=== PATIENT | female | born 1960 | race Caucasian/White ===

== ENCOUNTER 2019-01-17 08:56 | Emergency (ER) | payer OTHER, SELFPAY ==
--- NOTE | 2019-01-17 09:11 | DI.RAD.S_ITS ---
PROCEDURE: XR FOOT LT MIN 3V INDICATIONS: fall TECHNIQUE: 3 views of the foot were acquired. COMPARISON: None. FINDINGS: Bones: There is a mildly displaced fifth metatarsal fracture through the mid to distal shaft. No definite intra-articular extension is evident. Irregularity along the lateral margin of the anterior distal calcaneus is present. No additional fractures are appreciated. No suspicious osseous lesions are present. A bipartite medial sesamoid of the great toe is evident. Soft tissues: No tibiotalar joint effusion. Soft tissue swelling at the fracture site is present. No radiopaque foreign bodies. IMPRESSION: 1. Mildly displaced fifth metatarsal fracture. 2. Questionable avulsion fracture involving the lateral aspect of the distal calcaneus. Please correlate with point tenderness. The need for further evaluation utilizing CT may be determined clinically. Dictated by: Kleber Last M.D. on 01/17/2019 at 9:05 Approved by: Kleber Last M.D. on 01/17/2019 at 9:08
--- NOTE | 2019-01-17 09:11 | DI.RAD.S_ITS ---
PROCEDURE: XR WRIST RT MIN 3V INDICATIONS: fall TECHNIQUE: 3 views of the wrist were acquired. COMPARISON: None. FINDINGS: Bones: There is a mildly comminuted fracture identified through the distal radial metaphysis with mild dorsal impaction and angulation of the distal fracture fragment. Fracture lines probably extend onto the articular surface of the radiocarpal joint and also appear to extend into the distal radioulnar joint. No additional fractures are appreciated. No suspicious osseous lesions are present. Soft tissues: No suspicious soft tissue calcifications. IMPRESSION: Mildly comminuted and impacted distal radius fracture (Colles' fracture). Dictated by: Kleber Last M.D. on 01/17/2019 at 9:08 Approved by: Kleber Last M.D. on 01/17/2019 at 9:10
[2019-01-17 09:13] VITALS: BP 148/92; PULSE 78; RESP 20; TEMP 36.2; O2SAT 99
[2019-01-17 09:35] VITALS: BP 148/92; PULSE 84; RESP 20; O2SAT 99
--- NOTE | 2019-01-17 09:44 | ED.FALL ---
HPI - Fall General Chief Complaint: Trauma Stated Complaint: Possible broken rt wrist, hurt lft foot Time Seen by Provider: 01/17/19 09:25 Source: patient Mode of arrival: wheelchair Limitations: no limitations History of Present Illness HPI Narrative: Patient is a 58-year-old female who was preparing for her [facility] today, there was of pedestal that she placed out last evening when she got up out of bed this morning she fell off the pedestal. Her left foot is black and blue with pain she is unable to weight bear completely. She also has right wrist pain. She denies hitting her head or loss of consciousness. She has no nausea vomiting. She has chronic ongoing neck pain. MD complaint: fall Onset (ago): hour(s) Fall from: standing Related Data Previous Rx's Medication Instructions Recorded hydrocodone-acetaminophen [Raymond] 1 tab PO Q6H PRN #10 tab 01/17/19 Review of Systems Review of Systems ROS Unobtainable: All systems reviewed & are unremarkable except as noted in HPI and below Constitutional Denies chills, Denies fever(s), Denies lethargy and Denies weakness Cardiovascular Denies chest pain, Denies irregular heart rhythm, Denies lightheadedness, Denies palpitations, Denies dyspnea, Denies dyspnea on exertion and Denies orthopnea Respiratory Denies cough, Denies dyspnea, Denies dyspnea on exertion and Denies wheezing Gastrointestinal Gastrointestinal: Denies abdominal pain, Denies change in bowel habits, Denies diarrhea, Denies nausea and Denies vomiting Musculoskeletal Reports as per HPI Integumentary/Breasts Denies pruritus, Denies erythema, Denies rash and Denies wounds Neurologic Denies weakness Endocrine Denies palpitations Allergic/Immunologic Denies wheezing Exam Initial Vital Signs Initial Vital Signs: Vital Signs Temperature 97.2 F L 01/17/19 09:13 Pulse Rate 78 01/17/19 09:13 Respiratory Rate 20 01/17/19 09:13 Blood Pressure 148/92 H 01/17/19 09:13 Pulse Oximetry 99 01/17/19 09:13 GENERAL: Well-appearing, well-nourished and in no acute distress. HEENT: Head atraumatic,EOMI, pupils reactive, face symmetric, moist mucous membranes CARDIOVASCULAR: Regular rate and rhythm without murmurs, rubs or gallops. RESPIRATORY: Breath sounds equal bilaterally, no wheezes rales or rhonchi. ABDOMEN: Soft, nontender. Normoactive bowel sounds all 4 quadrants. No guarding or rebound. EXTREMITIES: Normal range of motion, no clubbing or edema. Neurovascularly intact Right wrist mild swelling painful to touch. Able to move fingers. Distal radial pulses intact. No elbow pain or deformity. Left foot contusion laterally. Distal pedal pulses intact. NEUROLOGICAL: Alert and oriented x4.Normal gait and speech. Cranial nerves II through XII grossly intact. SKIN: Left foot contusion no other erythema. [facility] Medical History Chronic neck pain (Acute) Social History Smoking Status: Never smoker Social History Smoking Status: Never smoker Procedures Orthopedic Splinting/Casting Injury #1: Side: right Upper Extremity Injury Location: wrist Upper Extremity Immobilizer: volar splint Post splinting neuro exam: intact Post splinting vascular exam: intact Placed by: Nursing Injury #2: Side: left Lower Extremity Injury Location: foot Lower Extremity Immobilizer: post-op shoe Post splinting vascular exam: intact Placed by: Nursing Course Orders Ordered: ED Orders 01/17/19 09:11 XR foot LT min 3V Stat XR wrist RT min 3V Stat Vital Signs - 8 hr 01/17/19 09:13 01/17/19 09:35 Temperature 97.2 F L Pulse Rate 78 84 Respiratory Rate 20 20 Blood Pressure 148/92 H Blood Pressure [Left Arm] 148/92 H Pulse Oximetry 99 99 MDM - Fall Imaging Data left foot: Radiologist's impression: PROCEDURE: XR FOOT LT MIN 3V INDICATIONS: fall TECHNIQUE: 3 views of the foot were acquired. COMPARISON: None. FINDINGS: Bones: There is a mildly displaced fifth metatarsal fracture through the mid to distal shaft. No definite intra-articular extension is evident. Irregularity along the lateral margin of the anterior distal calcaneus is present. No additional fractures are appreciated. No suspicious osseous lesions are present. A bipartite medial sesamoid of the great toe is evident. Soft tissues: No tibiotalar joint effusion. Soft tissue swelling at the fracture site is present. No radiopaque foreign bodies. IMPRESSION: 1. Mildly displaced fifth metatarsal fracture. 2. Questionable avulsion fracture involving the lateral aspect of the distal calcaneus. Please correlate with point tenderness. The need for further evaluation utilizing CT may be determined clinically. Dictated by: Kleber Last M.D. on 01/17/2019 at 9:05 right wrist: Radiologist's impression: PROCEDURE: XR WRIST RT MIN 3V INDICATIONS: fall TECHNIQUE: 3 views of the wrist were acquired. COMPARISON: None. FINDINGS: Bones: There is a mildly comminuted fracture identified through the distal radial metaphysis with mild dorsal impaction and angulation of the distal fracture fragment. Fracture lines probably extend onto the articular surface of the radiocarpal joint and also appear to extend into the distal radioulnar joint. No additional fractures are appreciated. No suspicious osseous lesions are present. Soft tissues: No suspicious soft tissue calcifications. IMPRESSION: Mildly comminuted and impacted distal radius fracture (Colles' fracture). Dictated by: Kleber Last M.D. on 01/17/2019 at 9:08 [facility] Narrative Medical decision making narrative: Patient is actually able to bear weight with orthopedic shoe. She does not want a sling for her arm she can't have anything around her neck or touching it. Her friend has gone to get her a cane in fill her pain prescriptions. she has no head injury, no history or signs or symptoms of head injury. At this time no further imaging indicated. She lives out of town and will follow up with her own orthopedics and PCP and [facility] She is given at this. Discharge Plan Departure Patient Disposition: Home Clinical Impression: Closed fracture of right wrist Qualifiers: Encounter type: initial encounter Qualified Code(s): S62.101A - Fracture of unspecified carpal bone, right wrist, initial encounter for closed fracture Closed fracture of fifth toe of left foot Qualifiers: Encounter type: initial encounter Qualified Code(s): S92.502A - Displaced unspecified fracture of left lesser toe(s), initial encounter for closed fracture Discharge Date/Time: 01/17/19 10:37 Interventions: ED Discharge Assessment Last Done: 01/17/19 10:37 Instructions: Wrist Fracture, Foot Fracture Activity Restrictions/Additional Instructions: *You have been diagnosed with a left 5th toe fracture, right wrist fracture *What to do: Your foot may require surgery. Please wear orthopedic shoe at times including while sleeping. Where wrist splint and cast at all times as well. This will require a more permanent cast in about 1 week with Orthopedics. *Continue to take medications as directed Raymond 1 tablet every 4 hours or 2 tablets every 6 hours if needed for severe pain *Follow up with your primary care provider in 2-3 days, call your orthopedic on Saturday to schedule follow up appointment next week *Return to ER if you should have increasing pain numbness tingling or any new, worsening or concerning symptoms Prescriptions: New hydrocodone-acetaminophen [Raymond] 5-325 mg tablet 1 tab PO Q6H PRN (Reason: pain) Qty: 10 RF: 0
--- NOTE | 2019-01-17 09:50 | ED_ITS ---
HPI - Fall General Chief Complaint: Trauma Stated Complaint: Possible broken rt wrist, hurt lft foot Time Seen by Provider: 01/17/19 09:25 Source: patient Mode of arrival: wheelchair Limitations: no limitations History of Present Illness HPI Narrative: Patient is a 58-year-old female who was preparing for her [employer] today, there was of pedestal that she placed out last evening when she got up out of bed this morning she fell off the pedestal. Her left foot is black and blue with pain she is unable to weight bear completely. She also has right wrist pain. She denies hitting her head or loss of co nsciousness. She has no nausea vomiting. She has chronic ongoing neck pain. MD complaint: fall Onset (ago): hour(s) Fall from: standing Related Data Previous Rx's Medication Instructions Recorded hydrocodone-acetaminophen [Duxbury] 1 tab PO Q6H PRN #10 tab 01/17/19 Review of Systems Review of Systems ROS Unobtainable: All systems reviewed & are unremarkable except as noted in HPI and below Constitutional Denies chills, Denies fever(s), Denies lethargy and Denies weakness Cardiovascular Denies chest pain, Denies irregular heart rhythm, Denies lightheadedness, Denies palpitations, Denies dyspnea, Denies dyspnea on exertion and Denies orthopnea Respiratory Denies cough, Denies dyspnea, Denies dyspnea on exertion and Denies wheezing Gastrointestinal Gastrointestinal: Denies abdominal pain, Denies change in bowel habits, Denies diarrhea, Denies nausea and Denies vomiting Musculoskeletal Reports as per HPI Integumentary/Breasts Denies pruritus, Denies erythema, Denies rash and Denies wounds Neurologic Denies weakness Endocrine Denies palpitations Allergic/Immunologic Denies wheezing Exam Initial Vital Signs Initial Vital Signs: Vital Signs Temperature 97.2 F L 01/17/19 09:13 Pulse Rate 78 01/17/19 09:13 Respiratory Rate 20 01/17/19 09:13 Blood Pressure 148/92 H 01/17/19 09:13 Pulse Oximetry 99 01/17/19 09:13 GENERAL: Well-appearing, well-nourished and in no acute distress. HEENT: Head atraumatic,EOMI, pupils reactive, face symmetric, moist mucous membranes CARDIOVASCULAR: Regular rate and rhythm without murmurs, rubs or gallops. RESPIRATORY: Breath sounds equal bilaterally, no wheezes rales or rhonchi. ABDOMEN: Soft, nontender. Normoactive bowel sounds all 4 quadrants. No guarding or rebound. EXTREMITIES: Normal range of motion, no clubbing or edema. Neurovascularly intact Right wrist mild swelling painful to touch. Able to move fingers. Distal radial pulses intact. No elbow pain or deformity. Left foot contusion laterally. Distal pedal pulses intact. NEUROLOGICAL: Alert and oriented x4.Normal gait and speech. Cranial nerves II through XII grossly intact. SKIN: Left foot contusion no other erythema. [facility] Medical History Chronic neck pain (Acute) Social History Smoking Status: Never smoker Social History Smoking Status: Never smoker Procedures Orthopedic Splinting/Casting Injury #1: Side: right Upper Extremity Injury Location: wrist Upper Extremity Immobilizer: volar splint Post splinting neuro exam: intact Post splinting vascular exam: intact Placed by: Nursing Injury #2: Side: left Lower Extremity Injury Location: foot Lower Extremity Immobilizer: post-op shoe Post splinting vascular exam: intact Placed by: Nursing Course Orders Ordered: ED Orders 01/17/19 09:11 XR foot LT min 3V Stat XR wrist RT min 3V Stat Vital Signs - 8 hr 01/17/19 09:13 01/17/19 09:35 Temperature 97.2 F L Pulse Rate 78 84 Respiratory Rate 20 20 Blood Pressure 148/92 H Blood Pressure [Left Arm] 148/92 H Pulse Oximetry 99 99 MDM - Fall Imaging Data left foot: Radiologist's impression: PROCEDURE: XR FOOT LT MIN 3V INDICATIONS: fall TECHNIQUE: 3 views of the foot were acquired. COMPARISON: None. FINDINGS: Bones: There is a mildly displaced fifth metatarsal fracture through the mid to distal shaft. No definite intra-articular extension is evident. Irregularity along the lateral margin of the anterior distal calcaneus is present. No additional fractures are appreciated. No suspicious osseous lesions are present. A bipartite medial sesamoid of the great toe is evident. Soft tissues: No tibiotalar joint effusion. Soft tissue swelling at the fracture site is present. No radiopaque foreign bodies. IMPRESSION: 1. Mildly displaced fifth metatarsal fracture. 2. Questionable avulsion fracture involving the lateral aspect of the distal calcaneus. Please correlate with point tenderness. The need for further evaluation utilizing CT may be determined clinically. Dictated by: Kleber Last M.D. on 01/17/2019 at 9:05 right wrist: Radiologist's impression: PROCEDURE: XR WRIST RT MIN 3V INDICATIONS: fall TECHNIQUE: 3 views of the wrist were acquired. COMPARISON: None. FINDINGS: Bones: There is a mildly comminuted fracture identified through the distal radial metaphysis with mild dorsal impaction and angulation of the distal fracture fragment. Fracture lines probably extend onto the articular surface of the radiocarpal joint and also appear to extend into the distal radioulnar joint. No additional fractures are appreciated. No suspicious osseous lesions are present. Soft tissues: No suspicious soft tissue calcifications. IMPRESSION: Mildly comminuted and impacted distal radius fracture (Colles' fracture). Dictated by: Kleber Last M.D. on 01/17/2019 at 9:08 [facility] Narrative Medical decision making narrative: Patient is actually able to bear weight with orthopedic shoe. She does not want a sling for her arm she can't have anything around her neck or touching it. Her friend has gone to get her a cane in fill her pain prescriptions. she has no head injury, no history or signs or symptoms of head injury. At this time no further imaging indicated. She lives out of town and will follow up with her own orthopedics and PCP and [facility] She is given at this. Discharge Plan Departure Patient Disposition: Home Clinical Impression: Closed fracture of right wrist Qualifiers: Encounter type: initial encounter Qualified Code(s): S62.101A - Fracture of unspecified carpal bone, right wrist, initial encounter for closed fracture Closed fracture of fifth toe of left foot Qualifiers: Encounter type: initial encounter Qualified Code(s): S92.502A - Displaced unspecified fracture of left lesser toe(s), initial encounter for closed fracture Discharge Date/Time: 01/17/19 10:37 Interventions: ED Discharge Assessment Last Done: 01/17/19 10:37 Instructions: Wrist Fracture, Foot Fracture Activity Restrictions/Additional Instructions: *You have been diagnosed with a left 5th toe fracture, right wrist fracture *What to do: Your foot may require surgery. Please wear orthopedic shoe at times including while sleeping. Where wrist splint and cast at all times as well. This will require a more permanent cast in about 1 week with Orthopedics. *Continue to take medications as directed Duxbury 1 tablet every 4 hours or 2 tablets every 6 hours if needed for severe pain *Follow up with your primary care provider in 2-3 days, call your orthopedic on Saturday to schedule follow up appointment next week *Return to ER if you should have increasing pain numbness tingling or any new, worsening or concerning symptoms Prescriptions: New hydrocodone-acetaminophen [Duxbury] 5-325 mg tablet 1 tab PO Q6H PRN (Reason: pain) Qty: 10 RF: 0
== END 2019-01-17 10:37 | disposition home or self-care (01) ==
PROVIDERS: Emergency Provider Emergency Medicine
DX: S62.101A Fracture of unspecified carpal bone, right wrist, initial encounter for closed fracture (principal); S92.502A Displaced unspecified fracture of left lesser toe(s), initial encounter for closed fracture; W18.30XA Fall on same level, unspecified, initial encounter
CPT/HCPCS: 29125; 29550; 73110; 73630; 99283